=== PATIENT | male | born 1975 | race Two or more races ===

== ENCOUNTER 2016-05-21 22:40 | Emergency (ER) | payer SELFPAY ==
[~2016-05-21] VITALS: Ht 170.2 cm; Wt 47.2 kg
[~2016-05-21 22:40] MED LIST: BUTACAP64; ESCI10TA; HYDR-1917; NAPR-607; TRAZADONE
[2016-05-22 02:45] VITALS: BP 114/77
== END 2016-05-22 03:03 | disposition home or self-care (01) ==
LOC: ER 22:40
DX: S16.1XXA Strain of muscle, fascia and tendon at neck level, initial encounter (principal); M54.5 Low back pain; R51 Headache; V49.9XXA Car occupant (driver) (passenger) injured in unspecified traffic accident, initial encounter; Y93.89 Activity, other specified; Y99.8 Other external cause status; Y92.488 Other paved roadways as the place of occurrence of the external cause; M62.838 Other muscle spasm; Z88.0 Allergy status to penicillin
CPT/HCPCS: 70450; 72125; 72131

== ENCOUNTER 2020-02-03 11:48 | Emergency (ER) | payer SELFPAY ==
[~2020-02-03] VITALS: Ht 170.2 cm; Wt 89.4 kg
[~2020-02-03 11:48] MED LIST changes: -NAPR-607; +NAPR500T31
[2020-02-03] MEDS ORDERED: METHOCARBAMOL 500 MG TAB PO ONE (13:15)
[2020-02-03] MEDS ORDERED: KETOROLAC TROMETH 60MG/2ML VIAL IM ONE (13:15)
[2020-02-03 13:23] VITALS: BP 128/75
== END 2020-02-03 13:29 | disposition home or self-care (01) ==
LOC: ER 11:48
DX: M25.512 Pain in left shoulder (principal); E11.9 Type 2 diabetes mellitus without complications; Z79.899 Other long term (current) drug therapy
CPT/HCPCS: 96372; 99283; J1885

== ENCOUNTER 2023-11-29 14:57 | Emergency (ER) | payer MEDICAID ==
[~2023-11-29] VITALS: Ht 170.2 cm; Wt 81.8 kg
[~2023-11-29 14:57] MED LIST changes: +NAPR-746; -NAPR500T31
[2023-11-29] MEDS: HYDROcodone-ACET 5/325MG TAB PO ONE (16:07)
[2023-11-29] MEDS ORDERED: BACL10TA PO (16:32)
[2023-11-29] MEDS ORDERED: ACET-1080 PO (16:32)
[2023-11-29 16:45] VITALS: BP 143/90; PULSE 85; RESP 18; TEMP 98.2; O2SAT 97
== END 2023-11-29 16:47 | disposition home or self-care (01) ==
LOC: ER 14:57
DX: S86.812A Strain of other muscle(s) and tendon(s) at lower leg level, left leg, initial encounter (principal); E11.9 Type 2 diabetes mellitus without complications; Z79.899 Other long term (current) drug therapy; X58.XXXA Exposure to other specified factors, initial encounter; Y93.89 Activity, other specified; Y92.89 Other specified places as the place of occurrence of the external cause; Y99.8 Other external cause status
CPT/HCPCS: 93971